=== PATIENT | female | born 1990 | race Caucasian/White ===

== ENCOUNTER → 2022-05-16 | Outpatient (CLI) | payer OTHER ==
[~2022-05-16] MED LIST: MOTRIN 600600 MG/TAB PO; NIFEREX-15150 MG/CAP PO; PERCOCET 325 MG1 TA2 PO; PRENATAL MVI
[2022-05-16 14:09] LABS: ALBUMIN 3.8 gm/dL (3.5-5.0); BILIRUBIN,TOTAL 0.3 mg/dL (0.2-1.2); CALCIUM 9.2 mg/dL (8.4-10.2); CREATININE, serum 0.75 mg/dL (0.57-1.11); TOTAL PROTEIN 7.3 gm/dL (6.2-8.1)
== END ==
LOC: COL.LAB 13:13
PROVIDERS: Physician Assistant
DX: M79.661 Pain in right lower leg (principal); M79.89 Other specified soft tissue disorders